=== PATIENT | female | born 1955 | race Caucasian/White ===

== ENCOUNTER 2019-02-14 13:26 | Outpatient (CLI) | payer OTHER ==
--- NOTE | 2019-02-14 13:48 | RAD ---
F3 views right shoulder. HISTORY: Upper back and chest pain. AP internally, externally scapular Y views right shoulder obtained. 3 views right shoulder demonstrates no evidence of right shoulder fractures, subluxations or bony les ions. IMPRESSION: Normal 3 views right shoulder.
--- NOTE | 2019-02-14 15:05 | RAD ---
CERVICAL SPINE 4 VIEWS: Date: 02/14/19 HISTORY: Upper back pain. Neck pain. FINDINGS: Cervical vertebra maintain height and alignment. There are mild to moderate degenerative changes. Mil d loss of disc space at C3-4 and at C5-6. Anterior osteophytes at C3-4 and C5-6 with posterior spondy losis at both of these levels. Mild facet hypertrophy in the mid cervical spine is also seen. Posteri or alignment is maintained. IMPRESSION: There are mild to moderate degenerative changes at C3-4 and at C5-6 as described. POS: [facility]
== END 2019-02-14 13:27 | disposition home or self-care (01) ==
LOC: NAV RAD 13:26
PROVIDERS: ATTEND Internal Medicine
DX: M54.6 Pain in thoracic spine (principal); M47.812 Spondylosis without myelopathy or radiculopathy, cervical region
CPT/HCPCS: 72040

== ENCOUNTER 2019-06-10 15:28 | Emergency (ER) | payer OTHER ==
[2019-06-10 16:13] LABS: Hemoglobin 7.7 g/dL (12.0-16.0); Mean Corpuscular HGB CONC 31.5 g/dL (32.0-36.0); Mean Corpuscular Hemoglobin 31.2 pg (27.0-31.0); Mean Platelet Volume 5.3 fL (7.4-10.4); Platelet Count 309 thou/uL (130-400); RBC Distribution Width 19.9 % (11.5-14.5); Red Blood Cell (RBC) Count 2.48 mill/uL (4.20-5.40); White Blood Cell (WBC) Count 32.7 thou/uL (4.8-10.8)
[2019-06-10] MEDS ORDERED: Ondansetron PF 4 MG/2 ML Vial ONE (16:17)
[2019-06-10] MEDS ORDERED: Sodium Chloride 0.9% 1,000 ML ONE (16:17)
--- NOTE | 2019-06-10 16:18 | CT ---
CT head noncontrast HISTORY: Altered mental status. FINDINGS: There is no evidence of acute intracranial hemorrhage or infarct. The ventricles appear nor mal in size, shape and position. There is no mass effect or shift of midline structures. Mild chronic ischemic small vessel changes within the periventricular white matter of each cerebral hemisp here. Visualized paranasal sinuses remain well-aerated. IMPRESSION: No acute intracranial abnormalities are demonstrated.
[2019-06-10] MEDS ORDERED: cefTRIAXone\\ROCEPHIN 2 GM VIAL ONE (16:33)
[2019-06-10 16:35] LABS: ALT (SGPT) 22 U/L (8-55); AST (SGOT) 29 U/L (5-34); Albumin 4.1 g/dL (3.4-4.8); Alkaline Phosphatase 521 U/L (40-150); Anion Gap 14 mmol/L (10-20); BUN (Urea Nitrogen) 15 mg/dL (9.8-20.1); Bilirubin, Total 0.6 mg/dL (0.2-1.2); Calc. Creatinine Clearance 0 mL/min (70-130); Calcium 8.7 mg/dL (7.8-10.44); Carbon Dioxide 22 mmol/L (23-31); Chloride 99 mmol/L (98-107); Estimated GFR-MDRD Greater than 90; Globulin 2.4 g/dL (2.4-3.5); Glucose 143 mg/dL (80-115); Lipase 18 U/L (8-78); Protein, Total 6.5 g/dL (6.0-8.3); Sodium 131 mmol/L (136-145)
[2019-06-10 16:40] LABS: Anisocytosis MODERATE=16-30 cells (100X) (0-5/hpf); Band 12 % (5-11); Lymphocytes 1 % (21-51); MDiff Complete? YES; Macrocytosis SLIGHT = 6-15 cells (100X) (0-5/hpf); Monocytes 1 % (0-10); Neutrophil 86 % (42-75); Platelet Morphology Comment Appears Adequate
[2019-06-10] MEDS ORDERED: Cefepime 2 GM VIAL ONE (17:06)
[2019-06-10 17:13] LABS: Bilirubin Negative (Negative); Blood, Urine Negative (Negative); Clarity Clear (Clear); Glucose, Urine (Dipstick) Negative (Negative); Leukocyte Trace (Negative); Nitrite Negative (Negative); Protein, Urine (Dipstick) 30 mg/dL (Neg-Trace); Urobilinogen 0.2 mg/dL (Less than 2)
[2019-06-10 17:45] LABS: Bacteria/HPF 1+ HPF (None Seen); RBC/HPF 0-3 HPF (0-3); WBC/HPF 0-3 HPF (0-3)
== END 2019-06-10 17:37 | disposition short-term general hospital (02) ==
LOC: NAV ERS 15:28
DX: D72.829 Elevated white blood cell count, unspecified (principal); R11.2 Nausea with vomiting, unspecified; E78.5 Hyperlipidemia, unspecified; I10 Essential (primary) hypertension; Z87.891 Personal history of nicotine dependence
CPT/HCPCS: 36415; 70450; 80053; 81003; 81015; 83605; 83690; 85025; 87040; 87086; 96361; 96365; 96375; J0692; J0696; J2405; J7050

== ENCOUNTER 2019-07-27 10:03 | Inpatient (IN) | payer OTHER ==
[2019-07-27] MEDS ORDERED: Fluconazole 100 MG TAB PO SCH (12:15)
[2019-07-27 12:18] LABS: ALT (SGPT) 160 U/L (8-55); AST (SGOT) 57 U/L (5-34); Albumin 3.2 g/dL (3.4-4.8); Alkaline Phosphatase 150 U/L (40-150); Anion Gap 13 mmol/L (10-20); BUN (Urea Nitrogen) 19 mg/dL (9.8-20.1); Bilirubin, Total 0.6 mg/dL (0.2-1.2); Calc. Creatinine Clearance 71 mL/min (70-130); Calcium 8.4 mg/dL (7.8-10.44); Carbon Dioxide 30 mmol/L (23-31); Chloride 90 mmol/L (98-107); Estimated GFR-MDRD Greater than 90; Globulin 1.9 g/dL (2.4-3.5); Glucose 104 mg/dL (80-115); Potassium 3.4 mmol/L (3.5-5.1); Protein, Total 5.1 g/dL (6.0-8.3); Sodium 130 mmol/L (136-145)
[2019-07-27 12:43] LABS: Hemoglobin 10.2 g/dL (12.0-16.0); Mean Corpuscular HGB CONC 32.7 g/dL (32.0-36.0); Mean Corpuscular Hemoglobin 30.6 pg (27.0-31.0); Mean Corpuscular Volume 93.4 fL (78.0-98.0); Mean Platelet Volume 5.4 fL (7.4-10.4); Platelet Count 247 thou/uL (130-400); RBC Distribution Width 17.2 % (11.5-14.5); Red Blood Cell (RBC) Count 3.34 mill/uL (4.20-5.40); White Blood Cell (WBC) Count 17.7 thou/uL (4.8-10.8)
[2019-07-27] MEDS: HYDROcodone/Acetaminophen 10/325 mg Tablet PO PRN ×2 (12:43→20:31)
[2019-07-27 12:44] LABS: Anisocytosis SLIGHT = 6-15 cells (100X) (0-5/hpf); Lymphocytes 8 % (21-51); MDiff Complete? YES; Monocytes 7 % (0-10); Neutrophil 85 % (42-75); Platelet Morphology Comment Appears Adequate
[2019-07-27] MEDS ORDERED: predniSONE 20 MG TAB PO SCH ×2 (17:00→17:30)
[2019-07-27] MEDS: Apixaban 5 MG TAB PO SCH (20:31)
[2019-07-27] MEDS: Mirtazapine 15 MG Soltab PO SCH (20:33)
[2019-07-27] MEDS: Flecainide 50 MG TAB PO SCH (20:33)
[2019-07-28] MEDS: HYDROcodone/Acetaminophen 10/325 mg Tablet PO PRN ×3 (04:32→20:36)
[2019-07-28] MEDS ORDERED: Sodium Chloride 0.9% 20 ML ONE (06:27)
[2019-07-28] MEDS ORDERED: Sodium Chloride 0.9% 1,000 ML IV SCH ×2 (07:00→19:00)
[2019-07-28] MEDS: Saccharomyces boulardii 250 MG CAP PO SCH (08:28)
[2019-07-28] MEDS: Flecainide 50 MG TAB PO SCH ×2 (08:29→20:36)
[2019-07-28] MEDS: predniSONE 20 MG TAB PO SCH ×2 (08:29→16:39)
[2019-07-28] MEDS: Fluconazole 100 MG TAB PO SCH (08:29)
[2019-07-28] MEDS: Amlodipine 5 MG TAB PO SCH (08:29)
[2019-07-28] MEDS: Apixaban 5 MG TAB PO SCH ×2 (08:29→20:36)
--- NOTE | 2019-07-28 13:14 | HP ---
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 She has undergone chemotherapy and immunotherapy and is in remission at this time with no evidence of active metastasis or primary lung disease. 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 She apparently, however, has continued to have recurrent diarrhea after discharge up to 3-5 times daily with association with poor appetite has caused her to have significant weakness and dehydration. [facility] and has had need for IV fluids in the oncology unit several times already. She is therefore admitted to the swing unit for IV fluids and for therapy as she is significantly deconditioned from her primary illness as well as a subsequent complications of colitis and diarrhea. She is eating fairly well with only mild nausea with no vomiting. She has also developed a complication of atrial fibrillation and flutter with rapid ventricular response which is what precipitated her admission to [facility] on June 29. This was treated with ablation for typical atrial flutter, and she is to stay on apixaban anticoagulation and rhythm control with flecainide 50 mg every 12 hours. This has maintained her in sinus rhythm, and according to the original note, she may be ready to have her anticoagulation discontinued, but this will not be done until clarified with her inside phone sales. PAST MEDICAL HISTORY: As mentioned above. It is positive for cancer of the lung, hypertension, hyperlipidemia, the recent diagnosis of Clostridium difficile colitis which has resolved, and the autoimmune colitis in addition to the new onset of atrial fibrillation and flutter. PAST SURGICAL HISTORY: Positive only for multiple back surgeries and for a MediPort placement for chemotherapy. SOCIAL HISTORY: She is a full code. She lives with her family. She is a nondrinker. She is a former smoker until last year. ALLERGIES: SHE IS ALLERGIC TO ERYTHROMYCIN. REVIEW OF SYSTEMS: HEENT: She denies change in vision or hearing, hoarseness, or dysphagia. PULMONARY: She denies cough, sputum production, pneumonia, asthma, or tuberculosis. CARDIOVASCULAR: She has the above-mentioned history of atrial flutter which apparently is asymptomatic as far as palpitations, chest pain, and shortness of breath, only associated with weakness and dyspnea on exertion. GASTROINTESTINAL: She has poor appetite, but no nausea, has had the recurrent diarrhea up to 5 to 10 loose stools daily, now down to 1 to 3 on steroid therapy. She denies any abdominal pain. GENITOURINARY: She denies any dysuria, hematuria, or nocturia. MUSCULOSKELETAL: She has diffuse generalized weakness. NEUROLOGIC: She denies localized numbness or tingling in arms or extremities. PHYSICAL EXAMINATION: GENERAL: The patient is a middle-aged white female, in no acute distress, oriented x3, and cooperative. VITAL SIGNS: Temperature is 98.6, pulse 102, respirations 20, O2 sats 94% on room air, blood pressure is 124/72. HEENT: Pupils are equal, round, and reactive to light and accommodation. Sclerae are anicteric. Conjunctivae are pale. Oral mucous membranes well hydrated. She has lost most of her hair from chemotherapy. NECK: Supple. There are no nodes or masses. JVP is not elevated. LUNGS: Clear. CARDIAC: Regular rhythm with S4. No gallops or murmurs. ABDOMEN: Soft with minimal tenderness in left lower quadrant. No masses or organomegaly. SKIN/EXTREMITIES: No edema, clubbing, or cyanosis. NEUROLOGIC: Intact. LABORATORY DATA: White count of 17,700, hematocrit 31, hemoglobin 10. Sodium is 130, potassium 3.4, chloride 90, bicarb 30, BUN 19, creatinine 0.64, calcium 8.4, AST 57, ALT 160, alkaline phosphatase 150, albumin 3.2. ASSESSMENT: 1. The patient is an unfortunate 63-year-old white female with a history of metastatic small-cell cancer to bone, who has undergone chemotherapy and immunotherapy and is in remission from her cancer, but has developed complications of initially C. difficile colitis and now autoimmune colitis with subsequent severe diarrhea, weakness, and dehydration requiring multiple rehydrations with IV fluids at the oncology unit. She has become significantly weak and unable to maintain ADLs and therefore was admitted to the [facility] for PT/OT. She also will be given IV bolus of saline periodically to maintain her hydration. 2. Atrial fibrillation and flutter, new onset, which has been treated with ablation and now is maintained in sinus rhythm on flecainide and is still on anticoagulation 1 month after ablation, even though initial recommendations were to possibly discontinue anticoagulation at that time. 3. Bone metastasis with no pain, being monitored closely. PLAN: 1. PT/OT consult. 2. Saline bolus 1000 mL in the a.m. and periodically as needed for hydration. 3. Continue to monitor oral intake and diarrhea. 4. Continue prednisone 40 mg twice daily for autoimmune colitis. Job ID: [id number]
[2019-07-28] MEDS: Mirtazapine 15 MG Soltab PO SCH (20:36)
[2019-07-29] MEDS: predniSONE 20 MG TAB PO SCH ×2 (08:29→16:48)
[2019-07-29] MEDS: Saccharomyces boulardii 250 MG CAP PO SCH (08:29)
[2019-07-29] MEDS: Fluconazole 100 MG TAB PO SCH (08:30)
[2019-07-29] MEDS: Apixaban 5 MG TAB PO SCH ×2 (08:30→20:54)
[2019-07-29] MEDS: Amlodipine 5 MG TAB PO SCH (08:30)
[2019-07-29] MEDS: Flecainide 50 MG TAB PO SCH ×2 (08:31→20:54)
[2019-07-29] MEDS: HYDROcodone/Acetaminophen 10/325 mg Tablet PO PRN ×3 (08:39→21:00)
[2019-07-29] MEDS: Baclofen 10 MG TAB PO PRN ×2 (09:34→18:33)
[2019-07-29] MEDS: Mirtazapine 15 MG Soltab PO SCH (20:54)
--- NOTE | 2019-07-29 21:32 | PRG ---
DATE OF SERVICE: 07/28/[address] Roderick Monk. SUBJECTIVE: The patient feels much better. Increased strength. Increased appetite. Does state, however, that she has had increased bowel movements with the IV fluids and does not wish IV fluids at this time, is ready to do more therapy, however, next week. OBJECTIVE: VITAL SIGNS: Shows her temperature is 96.9, pulse 99, respirations 20, O2 sats 96% on room air, blood pressure 125/74. LUNGS: Clear. CARDIAC EXAMINATION: Shows regular rhythm. ABDOMEN: Soft and nontender. ASSESSMENT: 1. Metastatic small-cell cancer of the lungs, of the bone, status post chemotherapy with complications of C. difficile colitis, now immune colitis, on steroid treatment with improving, but persistent diarrhea and weakness. 2. Atrial fibrillation and flutter. Maintain in sinus rhythm after ablation, but still on anticoagulation after one month and may need to consider discontinuation. 3. Bony metastasis with no pain, being monitored closely. PLAN: 1. Continue PT/OT. 2. Withhold saline and monitor as needed. Continue to monitor oral intake and diarrhea. Continue prednisone 40 mg twice daily for autoimmune colitis. Job ID: [id number]
--- NOTE | 2019-07-29 21:36 | PRG ---
DATE OF SERVICE: 07/29/2019 SUBJECTIVE: The patient feels well. Does not wish any further fluids. States she is ready for therapy. Has been eating well. Had some mild nausea and diarrhea today. OBJECTIVE: VITAL SIGNS: Show blood pressure is 134/72, temperature is 98, pulse 102, respirations 20, and O2 sats 97% on room air. LUNGS: Clear. CARDIAC: Showed regular rhythm. ABDOMEN: Soft with some minimal tenderness. ASSESSMENT AND PLAN: 1. 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 2. Deconditioning, ready for more PT/OT. 3. Dehydration, appears to be resolved at this time. We will monitor closely. 4. History of atrial fibrillation/flutter, resolved, status post ablation and is being maintained on rate control and anticoagulation but may need to be able to discontinue anticoagulation soon. Job ID: [id number]
[2019-07-30] MEDS: HYDROcodone/Acetaminophen 10/325 mg Tablet PO PRN ×3 (06:17→20:59)
[2019-07-30] MEDS: predniSONE 20 MG TAB PO SCH ×2 (08:45→17:17)
[2019-07-30] MEDS: Saccharomyces boulardii 250 MG CAP PO SCH (08:45)
[2019-07-30] MEDS: Amlodipine 5 MG TAB PO SCH (08:46)
[2019-07-30] MEDS: Apixaban 5 MG TAB PO SCH ×2 (08:46→21:00)
[2019-07-30] MEDS: Flecainide 50 MG TAB PO SCH ×2 (08:46→21:00)
[2019-07-30] MEDS: Baclofen 10 MG TAB PO PRN ×2 (08:46→17:35)
[2019-07-30] MEDS: Fluconazole 100 MG TAB PO SCH (08:46)
--- NOTE | 2019-07-30 13:58 | PRG ---
DATE OF SERVICE: 07/30/2019 SUBJECTIVE: Ms. Guzman is doing and feeling better per patient and Nursing. She states that she now has an appetite and is starting to eat. She states that she cannot tolerate the Ensure, and I advised her that I will have a dietary consult to see what else we can substitute. She is participating with therapy. Her diarrhea is much improved. She is noticing some crampy abdominal pain, and I advised her that most likely it is from her eating more and as long as she is not having any diarrhea. No blood in her stool. No fever or chills, then it means that her colitis is staying under control. She apparently was advised to cut down her prednisone to [address] Hood, and that is the dose we will continue her on as it seems to be helping her as well. No family at bedside. She does have an appointment with Dr. Parra, the leasing professional, tomorrow and nursing is aware that the patient will be taken by her son for the appointment and she will come back. OBJECTIVE: VITAL SIGNS: She is afebrile, heart rate 98, respirations 16, oxygen saturation 97% on room air, blood pressure 139/81. CARDIOVASCULAR: S1 and S2 plus. RESPIRATORY: Normal vesicular breath sounds. ABDOMEN: Soft, nontender. Bowel sounds heard in all quadrants. EXTREMITIES: Without cyanosis or clubbing. CENTRAL NERVOUS SYSTEM: Awake and responsive. Generalized weakness. IMPRESSION: 1. Metastatic lung cancer. 2. Autoimmune colitis. 3. Hypertension. 4. Dyslipidemia. 5. Resolved Clostridium difficile colitis. 6. Atrial fibrillation and flutter. 7. Significant deconditioning. PLAN: 1. Continue current medications including steroids. 2. Nutritional support and dietary to consult. 3. Hydration with IV fluids p.r.n. 4. Encourage p.o. fluid intake. She is doing well, currently on water and Gatorade. 5. PT and OT to eval and treat. 6. Recheck laboratory values in the morning. 7. DVT prophylaxis. Currently, she is on Eliquis. 8. Stress ulcer prophylaxis. We will start her on Pepcid. 9. Decubitus precautions. 10. Discussed with the patient and nursing in detail. All questions answered. Job ID: [id number]
[2019-07-30] MEDS: Famotidine 20 MG TAB PO SCH (20:59)
[2019-07-30] MEDS: Mirtazapine 15 MG Soltab PO SCH (21:00)
[2019-07-31] MEDS: HYDROcodone/Acetaminophen 10/325 mg Tablet PO PRN ×4 (05:37→22:19)
[2019-07-31 06:03] LABS: #Lymphocytes 0.8 thou/uL (1.20-3.40); #Monocytes 0.5 thou/uL (0.11-0.59); #Neutrophils 8.7 thou/uL (1.40-6.50); %Basophils 0.4 % (0.0-1.0); %Lymphocytes 7.4 % (21.0-51.0); %Monocytes 5.2 % (0.0-10.0); %Neutrophils 86.9 % (42.0-75.0); Hemoglobin 10.3 g/dL (12.0-16.0); Mean Corpuscular HGB CONC 32.2 g/dL (32.0-36.0); Mean Corpuscular Hemoglobin 30.4 pg (27.0-31.0); Mean Corpuscular Volume 94.1 fL (78.0-98.0); Mean Platelet Volume 5.2 fL (7.4-10.4); Platelet Count 256 thou/uL (130-400); RBC Distribution Width 17.7 % (11.5-14.5); Red Blood Cell (RBC) Count 3.38 mill/uL (4.20-5.40)
[2019-07-31] MEDS: predniSONE 20 MG TAB PO SCH ×2 (07:47→17:31)
[2019-07-31] MEDS: Baclofen 10 MG TAB PO PRN ×2 (07:48→18:16)
[2019-07-31 08:25] LABS: Anion Gap 16 mmol/L (10-20); BUN (Urea Nitrogen) 15 mg/dL (9.8-20.1); Calc. Creatinine Clearance 90 mL/min (70-130); Calcium 8.4 mg/dL (7.8-10.44); Carbon Dioxide 25 mmol/L (23-31); Chloride 96 mmol/L (98-107); Estimated GFR-MDRD Greater than 90; Glucose 102 mg/dL (80-115); Magnesium 2.1 mg/dL (1.6-2.6); Potassium 3.3 mmol/L (3.5-5.1); Sodium 134 mmol/L (136-145)
[2019-07-31] MEDS: Amlodipine 5 MG TAB PO SCH (08:46)
[2019-07-31] MEDS: Flecainide 50 MG TAB PO SCH ×2 (08:46→20:41)
[2019-07-31] MEDS: Apixaban 5 MG TAB PO SCH ×2 (08:46→20:41)
[2019-07-31] MEDS: Fluconazole 100 MG TAB PO SCH (08:46)
[2019-07-31] MEDS: Saccharomyces boulardii 250 MG CAP PO SCH (08:46)
[2019-07-31] MEDS ORDERED: Potassium Chloride 20 MEQ TAB PO SCH (13:15)
--- NOTE | 2019-07-31 13:35 | PRG ---
DATE OF SERVICE: 07/31/2019 SUBJECTIVE: Ms. Guzman is seen on her way to see her video tape transferrer. She apparently had four very small loose bowel movements this morning. Denies any fever or chills. She did meet with dietitian. OBJECTIVE: VITAL SIGNS: She is afebrile. Heart rate is 104, respirations 18, oxygen saturation 97% on room air, and blood pressure 124/75. CARDIOVASCULAR: S1 and S2 plus. RESPIRATORY: Normal vesicular breath sounds. ABDOMEN: Soft, nontender. Bowel sounds heard in all quadrants. EXTREMITIES: Without cyanosis or clubbing. CENTRAL NERVOUS SYSTEM: Awake and responsive. Generalized weakness. LABORATORY DATA: Laboratory values show sodium is much improved at 134, potassium still low at 3.3, BUN and creatinine are 15 and 0.5. White count is 10, H and H are 10.3 and 31.8 with a platelet count of 256. IMPRESSION: 1. Autoimmune colitis. 2. Resolved leukocytosis. 3. Anemia likely due to chronic disease. 4. Hyponatremia, improving. 5. Hypokalemia. 6. Protein calorie malnutrition, mild. 7. Resolved clostridium difficile colitis. 8. Metastatic lung cancer. PLAN: 1. Continue current medications including steroids. 2. Nutritional support. 3. Continue to encourage p.o. fluid intake. 4. Monitor diarrhea. 5. Replace potassium. 6. Her magnesium level is also normal, so continue to monitor blood counts and electrolytes. 7. Physical therapy as tolerated. 8. All questions answered. 9. Discussed with nursing. Job ID: [id number]
[2019-07-31] MEDS: Mirtazapine 15 MG Soltab PO SCH (20:41)
[2019-07-31] MEDS: Famotidine 20 MG TAB PO SCH (20:41)
[2019-08-01] MEDS: HYDROcodone/Acetaminophen 10/325 mg Tablet PO PRN ×2 (05:34→17:29)
[2019-08-01] MEDS: Amlodipine 5 MG TAB PO SCH (08:14)
[2019-08-01] MEDS: Baclofen 10 MG TAB PO PRN ×2 (08:14→17:30)
[2019-08-01] MEDS: Saccharomyces boulardii 250 MG CAP PO SCH (08:14)
[2019-08-01] MEDS: predniSONE 20 MG TAB PO SCH ×2 (08:14→17:29)
[2019-08-01] MEDS: Fluconazole 100 MG TAB PO SCH (08:14)
[2019-08-01] MEDS: Flecainide 50 MG TAB PO SCH (08:16)
[2019-08-01] MEDS: Apixaban 5 MG TAB PO SCH ×2 (08:16→21:41)
--- NOTE | 2019-08-01 13:01 | PRG ---
DATE OF SERVICE: 08/01/2019 SUBJECTIVE: Ms. Guzman is doing well, but her diarrhea is back. She has had about 3 to 4 episodes. No fever or chills. Her appetite is good and she is eating well. No lightheadedness or dizziness. She did participate with therapy. She saw Dr. Parra yesterday and apparently, she is supposed to have a monitor placed next week and then she is supposed to stop her medications. I do not see any orders. We will check with nursing. It is flecainide and Eliquis. OBJECTIVE: VITAL SIGNS: She is afebrile. Heart rate 102, respirations 18, oxygen saturation 97% on room air, and blood pressure 126/81. CARDIOVASCULAR: S1 and S2 plus. RESPIRATORY: Normal vesicular breath sounds. ABDOMEN: Soft and nontender. Bowel sounds heard in all quadrants. EXTREMITIES: Without cyanosis or clubbing. CENTRAL NERVOUS SYSTEM: Awake and responsive. Generalized weakness. IMPRESSION: 1. Autoimmune colitis. 2. Metastatic lung cancer. 3. Protein calorie malnutrition, mild. 4. Improving anorexia. 5. Hypokalemia. 6. Improving hyponatremia. 7. Atrial fibrillation, paroxysmal, now in sinus rhythm. PLAN: 1. Continue current medications. 2. Nutritional support. 3. DVT prophylaxis, she is on Eliquis. 4. Decubitus precautions. 5. Stress ulcer prophylaxis. 6. Monitor electrolytes and blood count. 7. Physical therapy. 8. Close monitoring of diarrhea in her GI system. 9. Continue steroids. 10. We will check with nursing to see if Dr. Parra sent any instructions regarding discontinuing any of her medications. Job ID: [id number]
[2019-08-01] MEDS: Mirtazapine 15 MG Soltab PO SCH (21:40)
[2019-08-01] MEDS: Famotidine 20 MG TAB PO SCH (21:40)
[2019-08-01] MEDS: Acetaminophen 500 MG TAB PO PRN (22:45)
[2019-08-02] MEDS: HYDROcodone/Acetaminophen 10/325 mg Tablet PO PRN ×4 (02:51→22:24)
[2019-08-02] MEDS: Hyoscyamine Sulfate SL 0.125 mg Tablet SL PRN (05:28)
[2019-08-02] MEDS ORDERED: HYDROcodone/Acetaminophen 10/325 mg Tablet PO SCH (05:30)
[2019-08-02] MEDS: Baclofen 10 MG TAB PO PRN ×2 (08:25→18:25)
[2019-08-02] MEDS: predniSONE 20 MG TAB PO SCH ×2 (08:25→16:43)
[2019-08-02] MEDS: Amlodipine 5 MG TAB PO SCH (08:25)
[2019-08-02] MEDS: Saccharomyces boulardii 250 MG CAP PO SCH (08:25)
[2019-08-02] MEDS: Apixaban 5 MG TAB PO SCH ×2 (08:35→21:27)
--- NOTE | 2019-08-02 13:06 | PRG ---
DATE OF SERVICE: 08/02/2019 SUBJECTIVE: Ms. Guzman did have increased diarrhea yesterday, which has slowed down. She also had cramping, but it responded very well to Levsin sublingual. She also had a headache, which responded to Tylenol. Her appetite remains good. I reviewed her notes instructions from Dr. Parra, the asphalt worker, and she is off her flecainide, and her Eliquis will be stopped next week when the Holter monitor is placed. OBJECTIVE: VITAL SIGNS: She is afebrile. Heart rate 97, respirations 18, oxygen saturation 96% on room air, and blood pressure 136/81. CARDIOVASCULAR SYSTEM: S1 and S2 plus. RESPIRATORY SYSTEM: Normal vesicular breath sounds. ABDOMEN: Soft and nontender. Bowel sounds heard in all quadrants. EXTREMITIES: Without cyanosis or clubbing. Peripheral pulses are palpable. CENTRAL NERVOUS SYSTEM: Awake and responsive. Generalized weakness. IMPRESSION: 1. Metastatic lung cancer. 2. Autoimmune colitis. 3. Hypertension. 4. Dyslipidemia. 5. Mild protein-calorie malnutrition. 6. Atrial fibrillation, paroxysmal. PLAN: 1. Continue current medications including steroids. 2. Routine laboratory values. 3. Nutritional support. 4. DVT prophylaxis. Currently, she is on Eliquis, but once that is discontinued, we will start her on PlexiPulses. 5. Decubitus precautions. 6. Stress ulcer prophylaxis. 7. Check labs in the morning. 8. Discussed with the patient in detail. All questions answered. 9. Therapy. Job ID: [id number]
[2019-08-02] MEDS: Acetaminophen 500 MG TAB PO PRN (18:25)
[2019-08-02] MEDS: Mirtazapine 15 MG Soltab PO SCH (21:27)
[2019-08-02] MEDS: Famotidine 20 MG TAB PO SCH (21:27)
[2019-08-03 05:28] LABS: #Lymphocytes 0.9 thou/uL (1.20-3.40); #Monocytes 0.4 thou/uL (0.11-0.59); #Neutrophils 4.6 thou/uL (1.40-6.50); %Basophils 0.8 % (0.0-1.0); %Eosinophils 0.1 % (0.0-10.0); %Lymphocytes 15.1 % (21.0-51.0); %Monocytes 6.5 % (0.0-10.0); %Neutrophils 77.5 % (42.0-75.0); Hemoglobin 10.9 g/dL (12.0-16.0); Mean Corpuscular HGB CONC 32.7 g/dL (32.0-36.0); Mean Corpuscular Hemoglobin 30.9 pg (27.0-31.0); Mean Corpuscular Volume 94.5 fL (78.0-98.0); Mean Platelet Volume 5.5 fL (7.4-10.4); Platelet Count 203 thou/uL (130-400); RBC Distribution Width 17.8 % (11.5-14.5); Red Blood Cell (RBC) Count 3.54 mill/uL (4.20-5.40); White Blood Cell (WBC) Count 5.9 thou/uL (4.8-10.8)
[2019-08-03 05:37] LABS: ALT (SGPT) 154 U/L (8-55); AST (SGOT) 38 U/L (5-34); Albumin 3.4 g/dL (3.4-4.8); Alkaline Phosphatase 172 U/L (40-150); Anion Gap 14 mmol/L (10-20); BUN (Urea Nitrogen) 19 mg/dL (9.8-20.1); Bilirubin, Total 0.9 mg/dL (0.2-1.2); Calc. Creatinine Clearance 84 mL/min (70-130); Calcium 8.9 mg/dL (7.8-10.44); Carbon Dioxide 27 mmol/L (23-31); Chloride 96 mmol/L (98-107); Estimated GFR-MDRD Greater than 90; Globulin 2.3 g/dL (2.4-3.5); Glucose 104 mg/dL (80-115); Potassium 3.8 mmol/L (3.5-5.1); Protein, Total 5.7 g/dL (6.0-8.3); Sodium 133 mmol/L (136-145)
[2019-08-03] MEDS: predniSONE 20 MG TAB PO SCH ×2 (08:11→23:03)
[2019-08-03] MEDS: Amlodipine 5 MG TAB PO SCH (08:12)
[2019-08-03] MEDS: Apixaban 5 MG TAB PO SCH ×2 (08:13→21:42)
[2019-08-03] MEDS: Saccharomyces boulardii 250 MG CAP PO SCH (08:13)
[2019-08-03] MEDS: HYDROcodone/Acetaminophen 10/325 mg Tablet PO PRN ×3 (08:14→21:42)
[2019-08-03] MEDS: Hyoscyamine Sulfate SL 0.125 mg Tablet SL PRN ×3 (08:15→21:42)
[2019-08-03] MEDS: Acetaminophen 500 MG TAB PO PRN (09:37)
[2019-08-03] MEDS: Famotidine 20 MG TAB PO SCH (21:42)
[2019-08-03] MEDS: Mirtazapine 15 MG Soltab PO SCH (21:42)
[2019-08-04] MEDS: HYDROcodone/Acetaminophen 10/325 mg Tablet PO PRN ×3 (06:51→21:19)
[2019-08-04] MEDS: Hyoscyamine Sulfate SL 0.125 mg Tablet SL PRN ×2 (06:54→12:33)
[2019-08-04] MEDS: predniSONE 20 MG TAB PO SCH ×2 (07:51→17:36)
[2019-08-04] MEDS: Baclofen 10 MG TAB PO PRN ×2 (07:51→17:36)
[2019-08-04] MEDS: Amlodipine 5 MG TAB PO SCH (08:55)
[2019-08-04] MEDS: Saccharomyces boulardii 250 MG CAP PO SCH (08:55)
[2019-08-04] MEDS: Apixaban 5 MG TAB PO SCH ×2 (08:55→21:21)
--- NOTE | 2019-08-04 15:05 | PRG ---
DATE OF SERVICE: 08/04/2019 SUBJECTIVE: Ms. Guzman is doing well. She apparently had about five episodes of diarrhea. She feels like it is related to her Ensure. She did not have any until the nurses made her drink one this morning and they wanted her to take 3 a day , so when she asked or when she drank her second one, she started having diarrhea. Since her albumin level is almost back to normal and she is eating well and her appetite is good, plan is to discontinue her Ensure and monitor her diarrhea to see if the diarrhea is related to the autoimmune colitis or whether it is related to dairy products. OBJECTIVE: VITAL SIGNS: She is afebrile, heart rate 98, respirations 23, oxygen saturation 98%, and blood pressure 140/84. CARDIOVASCULAR: S1 and S2 plus. RESPIRATORY: Normal vesicular breath sounds. EXTREMITIES: Without cyanosis or clubbing. CENTRAL NERVOUS SYSTEM: Improving deconditioning. IMPRESSION: 1. Autoimmune colitis. 2. Metastatic lung cancer. 3. Anemia of chronic disease. 4. Resolved leukocytosis. 5. Resolved Clostridium difficile colitis. 6. Paroxysmal atrial fibrillation. 7. Hypertension. 8. Dyslipidemia. PLAN: 1. Continue current medications. 2. Discontinue ensure. 3. Nutritional support but no dairy products. 4. Physical therapy. 5. Continue steroid. 6. Routine laboratory values. Still on Eliquis. 7. Discussed with the patient and nursing. All questions answered. Job ID: [id number]
[2019-08-04] MEDS: Mirtazapine 15 MG Soltab PO SCH (21:21)
[2019-08-04] MEDS: Famotidine 20 MG TAB PO SCH (21:21)
[2019-08-05] MEDS: HYDROcodone/Acetaminophen 10/325 mg Tablet PO PRN ×2 (05:21→12:41)
[2019-08-05] MEDS: Hyoscyamine Sulfate SL 0.125 mg Tablet SL PRN ×2 (05:28→12:42)
[2019-08-05] MEDS: Promethazine 25 MG TAB PO PRN (05:30)
[2019-08-05] MEDS: predniSONE 20 MG TAB PO SCH ×2 (07:45→16:42)
[2019-08-05] MEDS: Acetaminophen 500 MG TAB PO PRN ×2 (07:45→21:43)
[2019-08-05] MEDS: Baclofen 10 MG TAB PO PRN ×2 (07:45→18:40)
[2019-08-05] MEDS: Amlodipine 5 MG TAB PO SCH (08:33)
[2019-08-05] MEDS: Apixaban 5 MG TAB PO SCH ×2 (08:34→21:44)
[2019-08-05] MEDS: Saccharomyces boulardii 250 MG CAP PO SCH (08:35)
--- NOTE | 2019-08-05 15:16 | PRG ---
DATE OF SERVICE: 08/05/2019 SUBJECTIVE: Ms. Guzman is doing well. Denies any complaints. She apparently had 3 bowel movements today, small with some formed stools in each. She is off her Ensure and milk products. No concerns or questions. Appetite remains good. OBJECTIVE: VITAL SIGNS: She is afebrile, heart rate 111, respirations 16, blood pressure 132/80, and oxygen saturation 98% on room air. CARDIOVASCULAR SYSTEM: S1 and S2 plus. RESPIRATORY SYSTEM: Normal vesicular breath sounds. ABDOMEN: Soft and nontender. Bowel sounds heard in all quadrants. EXTREMITIES: Without cyanosis or clubbing. IMPRESSION: 1. Improving autoimmune colitis. 2. Improving protein-calorie malnutrition. 3. Metastatic lung cancer. 4. Hypertension. 5. Dyslipidemia. 6. Paroxysmal atrial fibrillation. PLAN: 1. Continue current medications. 2. Nutritional support. 3. Schedule appointment for followup with GI if the diarrhea does not continue to improve. 4. Routine laboratory values. 5. Physical therapy. 6. DVT prophylaxis - she is still on Eliquis. 7. Decubitus precautions. 8. Routine laboratory values. Job ID: [id number]
[2019-08-05] MEDS: Mirtazapine 15 MG Soltab PO SCH (21:44)
[2019-08-05] MEDS: Famotidine 20 MG TAB PO SCH (21:44)
[2019-08-06] MEDS: HYDROcodone/Acetaminophen 10/325 mg Tablet PO PRN ×3 (00:37→22:30)
[2019-08-06] MEDS: Hyoscyamine Sulfate SL 0.125 mg Tablet SL PRN ×3 (00:38→22:33)
[2019-08-06] MEDS: Promethazine 25 MG TAB PO PRN (00:53)
[2019-08-06] MEDS: Baclofen 10 MG TAB PO PRN (02:13)
[2019-08-06 05:40] LABS: #Basophils 0.1 thou/uL (0.0-0.2); #Lymphocytes 0.8 thou/uL (1.20-3.40); #Monocytes 0.4 thou/uL (0.11-0.59); #Neutrophils 2.9 thou/uL (1.40-6.50); %Basophils 1.4 % (0.0-1.0); %Eosinophils 0.1 % (0.0-10.0); %Lymphocytes 19.2 % (21.0-51.0); %Monocytes 8.8 % (0.0-10.0); %Neutrophils 70.5 % (42.0-75.0); Hemoglobin 11.4 g/dL (12.0-16.0); Mean Corpuscular HGB CONC 32.2 g/dL (32.0-36.0); Mean Corpuscular Hemoglobin 30.6 pg (27.0-31.0); Mean Corpuscular Volume 95.3 fL (78.0-98.0); Mean Platelet Volume 5.7 fL (7.4-10.4); Platelet Count 188 thou/uL (130-400); RBC Distribution Width 17.1 % (11.5-14.5); Red Blood Cell (RBC) Count 3.73 mill/uL (4.20-5.40); White Blood Cell (WBC) Count 4.1 thou/uL (4.8-10.8)
[2019-08-06 05:53] LABS: Anion Gap 14 mmol/L (10-20); BUN (Urea Nitrogen) 17 mg/dL (9.8-20.1); Calc. Creatinine Clearance 84 mL/min (70-130); Calcium 8.5 mg/dL (7.8-10.44); Carbon Dioxide 27 mmol/L (23-31); Chloride 91 mmol/L (98-107); Estimated GFR-MDRD Greater than 90; Glucose 122 mg/dL (80-115); Potassium 3.6 mmol/L (3.5-5.1); Sodium 128 mmol/L (136-145)
[2019-08-06 06:13] VITALS: BMI 16.9
[2019-08-06] MEDS: Saccharomyces boulardii 250 MG CAP PO SCH (08:32)
[2019-08-06] MEDS: Amlodipine 5 MG TAB PO SCH (08:34)
[2019-08-06] MEDS: predniSONE 20 MG TAB PO SCH ×2 (08:34→16:36)
[2019-08-06] MEDS: Apixaban 5 MG TAB PO SCH ×2 (08:34→22:32)
--- NOTE | 2019-08-06 13:45 | PRG ---
DATE OF SERVICE: 08/06/2019 SUBJECTIVE: Ms. Guzman is noticing more abdominal cramping and nausea. Her diarrhea has really slowed down. She apparently had two episodes of diarrhea last night and just one so far this morning, small quantity with occasional formed stool in it. OBJECTIVE: VITAL SIGNS: She is afebrile. Heart rate is 100, respirations 16, oxygen saturation 96% on room air, and blood pressure 156/89. CARDIOVASCULAR SYSTEM: S1-S2 plus. RESPIRATORY SYSTEM: Normal vesicular breath sounds. ABDOMEN: Soft and nontender. Bowel sounds heard in all quadrants. EXTREMITIES: Without cyanosis or clubbing. Significant muscle atrophy. CENTRAL NERVOUS SYSTEM: Awake and responsive. Generalized weakness. LABORATORY DATA: Laboratory values from this morning showed a sodium of 128, potassium 3.6, and BUN and creatinine are 17 and 0.54. White count is 4.1 and H and H are 11.4 and 35.5. Improving LFTs with an AST is down to 38 and ALT is down to 154. IMPRESSION: 1. Metastatic lung cancer. 2. Autoimmune colitis. 3. Improving transaminitis. 4. Hyponatremia. 5. Anemia of chronic disease. 6. Improving protein calorie malnutrition. PLAN: 1. Add Bentyl 10 mg p.o. q.i.d. routine for the abdominal cramping. 2. Add Zofran 4 mg ODT p.r.n. for nausea. 3. Continue to encourage p.o. intake. 4. Schedule appointment with Dr. Menon for followup on autoimmune colitis. 5. Discussed with nursing. All questions answered. Job ID: [id number]
[2019-08-06] MEDS: Ondansetron ODT 4 MG TAB PO PRN (13:49)
--- NOTE | 2019-08-06 13:51 | PRG ---
DATE OF SERVICE: 08/03/2019 SUBJECTIVE: Ms. Guzman is doing the same, denies any complaints. Her appetite is good. She is eating well. Diarrhea is fluctuating. Abdominal cramp is doing better with Levsin. No family at bedside. OBJECTIVE: VITAL SIGNS: She is afebrile. Heart rate is 107, respirations 18, oxygen saturation 97% on room air, and blood pressure 127/84. CARDIOVASCULAR SYSTEM: S1 and S2 plus. RESPIRATORY SYSTEM: Normal vesicular breath sounds. ABDOMEN: Soft and nontender. Bowel sounds heard in all quadrants. EXTREMITIES: Without cyanosis or clubbing. CENTRAL NERVOUS SYSTEM: Generalized weakness. IMPRESSION: 1. Autoimmune colitis, improving. 2. Metastatic lung cancer. 3. Hypertension. 4. Dyslipidemia. 5. Paroxysmal atrial fibrillation. 6. Hyponatremia. PLAN: 1. Continue current medications. 2. Nutritional support. 3. DVT prophylaxis - the patient is on Eliquis. 4. Decubitus precautions. 5. Stress ulcer prophylaxis. 6. Monitor diarrhea. 7. Physical therapy. 8. Routine laboratory values. Job ID: [id number]
[2019-08-06] MEDS: Dicyclomine 20 MG TAB PO SCH ×2 (16:34→22:33)
[2019-08-06] MEDS: Famotidine 20 MG TAB PO SCH (22:32)
[2019-08-06] MEDS: Mirtazapine 15 MG Soltab PO SCH (22:33)
[2019-08-07] MEDS: predniSONE 20 MG TAB PO SCH ×2 (08:40→17:57)
[2019-08-07] MEDS: Apixaban 5 MG TAB PO SCH ×2 (08:40→22:13)
[2019-08-07] MEDS: Dicyclomine 20 MG TAB PO SCH ×4 (08:41→22:13)
[2019-08-07] MEDS: Amlodipine 5 MG TAB PO SCH (08:42)
[2019-08-07] MEDS: Saccharomyces boulardii 250 MG CAP PO SCH (08:45)
[2019-08-07] MEDS: HYDROcodone/Acetaminophen 10/325 mg Tablet PO PRN ×2 (09:16→22:13)
--- NOTE | 2019-08-07 13:42 | PRG ---
DATE OF SERVICE: 08/07/2019 SUBJECTIVE: Ms. Guzman is doing much better today. She feels like the Bentyl is helping. She is tolerating her diet. She has had no diarrhea for 24 hours. Denies any further nausea or vomiting. Participated with therapy. OBJECTIVE: VITAL SIGNS: She is afebrile, heart rate is 103, respirations 18, oxygen saturation 97% on room air, blood pressure 156/86. CARDIOVASCULAR SYSTEM: S1 and S2 plus. RESPIRATORY SYSTEM: Normal vesicular breath sounds. ABDOMEN: Soft, nontender. Bowel sounds heard in all quadrants. EXTREMITIES: Without cyanosis or clubbing. CENTRAL NERVOUS SYSTEM: Awake and responsive. Generalized weakness. IMPRESSION: 1. Autoimmune colitis, improving. 2. Anemia of chronic disease. 3. Metastatic lung cancer. 4. Hyponatremia. 5. Improving protein-calorie malnutrition. 6. Paroxysmal atrial fibrillation. 7. Hypertension. 8. Dyslipidemia. PLAN: 1. Continue current medications. 2. Nutritional support. 3. Start cutting down on her narcotics from tomorrow. 4. Continue therapy. 5. Recheck CBC and BMP. 6. Monitor for any recurrence or worsening of diarrhea. 7. Appointment with GI. Nursing to schedule it. I had sent them a note yesterday, it has not been done, reminded them today. 8. Monitor blood pressure. 9. Monitor heart rate and rhythm. Job ID: [id number]
[2019-08-07] MEDS: Famotidine 20 MG TAB PO SCH (22:13)
[2019-08-07] MEDS: Baclofen 10 MG TAB PO PRN (22:13)
[2019-08-07] MEDS: Ondansetron ODT 4 MG TAB PO PRN (22:14)
[2019-08-07] MEDS: Hyoscyamine Sulfate SL 0.125 mg Tablet SL PRN (22:14)
[2019-08-07] MEDS: Mirtazapine 15 MG Soltab PO SCH (22:14)
[2019-08-08] MEDS: predniSONE 20 MG TAB PO SCH ×2 (07:55→17:18)
[2019-08-08] MEDS: Dicyclomine 20 MG TAB PO SCH (07:55)
[2019-08-08] MEDS: Saccharomyces boulardii 250 MG CAP PO SCH (07:56)
[2019-08-08] MEDS: Apixaban 5 MG TAB PO SCH ×2 (07:57→21:06)
[2019-08-08] MEDS: Amlodipine 5 MG TAB PO SCH (07:57)
[2019-08-08] MEDS: HYDROcodone/Acetaminophen 10/325 mg Tablet PO PRN ×2 (11:07→23:13)
[2019-08-08] MEDS: Baclofen 10 MG TAB PO PRN (11:07)
[2019-08-08] MEDS ORDERED: Baclofen 10 MG TAB PO PRN (12:29)
--- NOTE | 2019-08-08 13:35 | PRG ---
DATE OF SERVICE: 08/08/2019 SUBJECTIVE: Ms. Guzman saw Dr. Menon this morning. She apparently was having some suprapubic pain. She was unable to void, and so she had a straight cath done, which drained 650 mL. This is the first time she has been noted to have urinary retention. I have ordered a bladder scan q.6 hours, and to do in and out catheterization if postvoid residual is more than 400 mL. She only had one bowel movement this morning. She also looks much weaker and more somnolent today, and I reviewed her medications and will reduce her baclofen dose to 5 mg instead of 10. We will reduce her Bentyl to t.i.d. instead of q.i.d. and also discontinue her Levsin. I am going to hold off on empiric antibiotics given her risk for C diff. Encouraged her to drink plenty of fluids and also eat well. I also noted that she had refused therapy on Tuesday and Tuesday, so she really has not had any therapy since last Tuesday. Her [id number] is in the room and I had a long discussion with her and explained the importance of therapy to maintain her conditioning and our eventual plan of getting her back home. OBJECTIVE: VITAL SIGNS: She is afebrile. Heart rate 102, respirations 20, oxygen saturation 97% on room air, blood pressure 152/90. CARDIOVASCULAR: S1 and S2 plus. RESPIRATORY: Normal vesicular breath sounds. ABDOMEN: Soft, nontender. Bowel sounds heard in all quadrants. EXTREMITIES: Without cyanosis or clubbing. Significant muscle atrophy. CENTRAL NERVOUS SYSTEM: Generalized weakness. IMPRESSION: 1. Metastatic lung cancer. 2. Resolving autoimmune colitis. 3. Urinary retention, new. 4. Atrial fibrillation, paroxysmal. 5. Hypertension. 6. Dyslipidemia. 7. Anemia of chronic disease. 8. Hyponatremia. PLAN: 1. Increase Remeron to 30 mg to see if it helps with both depression and continue to improve her appetite. 2. Discontinue Levsin. 3. Reduce Bentyl to t.i.d. and baclofen dose to 5 mg to see if they may be contributing to her somnolence. 4. Encourage p.o. intake. 5. Bladder scan q.6 hours, and in and out catheterization if postvoid residual greater than 400 mL. 6. Await urinalysis and urine culture. 7. Recheck CBC and CMP in the morning. 8. Reinforce complaints with therapy. 9. Discussed with the patient, nursing, and [id number] in detail and all questions were answered. Job ID: [id number]
[2019-08-08 13:37] LABS: Bilirubin Negative (Negative); Blood, Urine Negative (Negative); Clarity Clear (Clear); Glucose, Urine (Dipstick) 100 mg/dL (Negative); Leukocyte Negative (Negative); Nitrite Negative (Negative); Urobilinogen 0.2 mg/dL (Less than 2)
[2019-08-08 13:42] LABS: Protein, Urine (Dipstick) 30 mg/dL (Neg-Trace)
[2019-08-08 13:43] LABS: Urine Culture Reflex No No
[2019-08-08 14:08] LABS: Bacteria/HPF Rare-Few HPF (None Seen); RBC/HPF None Seen HPF (0-3); Squamous Epithelial 0-3 HPF (0-3); WBC/HPF None Seen HPF (0-3)
[2019-08-08] MEDS ORDERED: Dicyclomine 20 MG TAB PO SCH (15:00)
[2019-08-08] MEDS ORDERED: Dicyclomine 10 MG CAP PO SCH (21:00)
[2019-08-08] MEDS: Famotidine 20 MG TAB PO SCH (21:06)
[2019-08-08] MEDS: Mirtazapine 15 MG Soltab PO SCH (21:06)
[2019-08-08] MEDS: Dicyclomine 10 MG CAP PO PRN (23:13)
[2019-08-09 05:47] LABS: ALT (SGPT) 130 U/L (8-55); AST (SGOT) 48 U/L (5-34); Albumin 3.1 g/dL (3.4-4.8); Alkaline Phosphatase 204 U/L (40-110); Anion Gap 14 mmol/L (10-20); BUN (Urea Nitrogen) 13 mg/dL (9.8-20.1); Bilirubin, Total 1.2 mg/dL (0.2-1.2); Calc. Creatinine Clearance 88 mL/min (70-130); Calcium 8.2 mg/dL (7.8-10.44); Carbon Dioxide 30 mmol/L (23-31); Chloride 86 mmol/L (98-107); Estimated GFR-MDRD Greater than 90; Globulin 2.1 g/dL (2.4-3.5); Glucose 107 mg/dL (80-115); Potassium 3.2 mmol/L (3.5-5.1); Protein, Total 5.2 g/dL (6.0-8.3); Sodium 127 mmol/L (136-145)
[2019-08-09 05:53] LABS: Band 4 % (5-11); Hemoglobin 11.3 g/dL (12.0-16.0); Lymphocytes 10 % (21-51); MDiff Complete? YES; Mean Corpuscular HGB CONC 33.7 g/dL (32.0-36.0); Mean Corpuscular Hemoglobin 30.6 pg (27.0-31.0); Mean Corpuscular Volume 90.8 fL (78.0-98.0); Mean Platelet Volume 6.1 fL (7.4-10.4); Monocytes 2 % (0-10); Neutrophil 84 % (42-75); Platelet Count 139 thou/uL (130-400); RBC Distribution Width 16.1 % (11.5-14.5); Red Blood Cell (RBC) Count 3.68 mill/uL (4.20-5.40); White Blood Cell (WBC) Count 4.1 thou/uL (4.8-10.8)
[2019-08-09] MEDS ORDERED: predniSONE 10 MG TAB PO SCH (08:00)
[2019-08-09] MEDS: Apixaban 5 MG TAB PO SCH ×2 (08:51→21:03)
[2019-08-09] MEDS: Saccharomyces boulardii 250 MG CAP PO SCH (08:51)
[2019-08-09] MEDS: Amlodipine 5 MG TAB PO SCH (08:51)
[2019-08-09] MEDS: predniSONE 20 MG TAB PO SCH (09:30)
[2019-08-09] MEDS: predniSONE 5 MG TAB PO SCH ×2 (10:00→17:28)
[2019-08-09] MEDS: HYDROcodone/Acetaminophen 10/325 mg Tablet PO PRN ×2 (10:43→21:03)
[2019-08-09] MEDS: Dicyclomine 10 MG CAP PO PRN (10:47)
[2019-08-09] MEDS ORDERED: Potassium Chloride 20 MEQ TAB PO SCH (13:30)
--- NOTE | 2019-08-09 13:54 | PRG ---
DATE OF SERVICE: 08/09/2019 SUBJECTIVE: Ms. Guzman is much more awake and responsive this morning. She apparently ate all of her breakfast. She again refused therapy because she states she feels weak and explained to her that not doing therapy makes her more weaker and it is not a good cycle. I advised her that she needs to work with therapy this afternoon and I have also asked nursing to inform therapy to come by and work with her. I also told her that there is suspicion for steroid-induced myopathy, and so I have cut down on her prednisone dosage. She only had one bowel movement this morning, which was semi solid or not very loose per nursing. She is continuing to have urinary retention requiring in and out catheterizations, so I advised her that to not take the Bentyl unless it is absolutely necessary. In fact, I am going to discontinue the Bentyl and just have her on the Levsin p.r.n. and see how she does since her colitis seems to have pretty much resolved. OBJECTIVE: VITAL SIGNS: She is afebrile. Heart rate 99, respirations 20, oxygen saturation 95% on room air, blood pressure 132/83. CARDIOVASCULAR: S1 and S2 plus. RESPIRATORY: Normal vesicular breath sounds. ABDOMEN: Soft, nontender. Bowel sounds heard in all quadrants. EXTREMITIES: Without cyanosis or clubbing. CENTRAL NERVOUS SYSTEM: Awake and responsive. Generalized weakness. LABORATORY VALUES: White count is 4.1, hemoglobin and hematocrit are 11.3 and 33.4. Sodium is 127, potassium is low at 3.2, BUN and creatinine are 13 and 0.49. AST and ALT are slightly elevated at 48 and 130, and I am not sure it is cholestasis from the steroids. IMPRESSION: 1. 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 2. Metastatic lung cancer. 3. Resolving confusion. 4. Improving autoimmune colitis. 5. Paroxysmal atrial fibrillation. 6. Hypertension. 7. Dyslipidemia. 8. Anemia of chronic disease. 9. Hypokalemia. 10. Hyponatremia. PLAN: 1. Make sure she is on a regular diet. 2. Replace potassium. 3. Encourage participation with therapy. 4. Discontinue Bentyl and add Levsin p.r.n. 5. Monitor laboratory values closely. 6. Continue in and out catheterization. 7. I had a long discussion with her son, Kendall yesterday as well as her [id number]. I also spoke with Dr. Hood last night and all are agreeable with the plan of care. Job ID: [id number]
[2019-08-09] MEDS: Mirtazapine 15 MG Soltab PO SCH (21:03)
[2019-08-09] MEDS: Famotidine 20 MG TAB PO SCH (21:03)
[2019-08-10] MEDS: predniSONE 5 MG TAB PO SCH ×2 (08:09→17:55)
[2019-08-10] MEDS: Amlodipine 5 MG TAB PO SCH (08:10)
[2019-08-10] MEDS: Saccharomyces boulardii 250 MG CAP PO SCH (08:12)
[2019-08-10] MEDS: Apixaban 5 MG TAB PO SCH ×2 (08:12→20:56)
[2019-08-10] MEDS: Hyoscyamine Sulfate SL 0.125 mg Tablet PO PRN (14:07)
[2019-08-10] MEDS: HYDROcodone/Acetaminophen 10/325 mg Tablet PO PRN (15:10)
--- NOTE | 2019-08-10 18:21 | PRG ---
DATE OF SERVICE: 08/10/2019 SUBJECTIVE: Ms. Guzman is awake and ate most of her breakfast. She is up in bed. She apparently when they helped her to the bedside commode was able to void 300 mL. I advised nursing to make sure they do not try the bedpan and get her to the bedside commode. Also encouraged her to work with therapy and I advised her that I have cut down on the prednisone and will keep a close eye on her GI symptoms. OBJECTIVE: VITAL SIGNS: She is afebrile. Heart rate 97, respirations 20, oxygen saturation 93% on room air, blood pressure 130/80. CARDIOVASCULAR: S1 and S2 plus. RESPIRATORY: Normal vesicular breath sounds. ABDOMEN: Soft, nontender. Bowel sounds heard in all quadrants. EXTREMITIES: Without cyanosis or clubbing. CENTRAL NERVOUS SYSTEM: Awake and responsive. Generalized weakness. IMPRESSION: 1. Metastatic lung cancer. 2. Autoimmune colitis, much improved. 3. Significant deterioration in strength, likely steroid induced myopathy. 4. Worsening liver function tests, possibly cholestasis from the steroids. 5. Hypertension. 6. Dyslipidemia. 7. Paroxysmal atrial fibrillation. PLAN: 1. Continue current medications. 2. Regular diet. 3. Physical therapy. 4. Monitor any decomposition of her colitis. 5. Monitor liver function test and order liver ultrasound. 6. Continue to encourage p.o. intake. 7. Discontinue baclofen. 8. Discussed with the patient and nursing in detail and all questions were answered. Job ID: [id number]
[2019-08-10] MEDS: Mirtazapine 15 MG Soltab PO SCH (20:56)
[2019-08-10] MEDS: Famotidine 20 MG TAB PO SCH (20:56)
[2019-08-11] MEDS: Amlodipine 5 MG TAB PO SCH (07:55)
[2019-08-11] MEDS: Hyoscyamine Sulfate SL 0.125 mg Tablet PO PRN (07:55)
[2019-08-11] MEDS: HYDROcodone/Acetaminophen 10/325 mg Tablet PO PRN (07:56)
[2019-08-11] MEDS: predniSONE 5 MG TAB PO SCH (09:12)
[2019-08-11] MEDS: Saccharomyces boulardii 250 MG CAP PO SCH (09:15)
[2019-08-11] MEDS: Apixaban 5 MG TAB PO SCH (09:16)
[2019-08-11] MEDS ORDERED: Sodium Chloride 0.9% 500 ML IVPB SCH (11:15)
--- NOTE | 2019-08-11 11:31 | CT ---
CT head noncontrast HISTORY: Altered mental status. COMPARISON: 07/18/2019. FINDINGS: There is no evidence of acute intracranial hemorrhage or infarct. Ventricular system is now mildly distended, significantly different than on the prior exam. Ill-defined decreased density within the periventricular white matter has the appearance of transependymal flow of CSF. Fourth vent ricle slightly more distended than on the previous exams. No focal mass effect. Visualized paranasal sinuses remain well-aerated. 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 Cause is not aura dent. There is rapid of a developmental is unusual.
[2019-08-11 11:49] LABS: Anion Gap 16 mmol/L (10-20); BUN (Urea Nitrogen) 22 mg/dL (9.8-20.1); Calc. Creatinine Clearance 74 mL/min (70-130); Calcium 8.3 mg/dL (7.8-10.44); Carbon Dioxide 29 mmol/L (23-31); Chloride 84 mmol/L (98-107); Estimated GFR-MDRD Greater than 90; Glucose 105 mg/dL (80-115); Potassium 3.7 mmol/L (3.5-5.1); Sodium 125 mmol/L (136-145)
[2019-08-11 12:21] LABS: #Lymphocytes 0.9 thou/uL (1.20-3.40); #Monocytes 0.4 thou/uL (0.11-0.59); #Neutrophils 4.4 thou/uL (1.40-6.50); %Basophils 0.7 % (0.0-1.0); %Eosinophils 0.1 % (0.0-10.0); %Monocytes 6.7 % (0.0-10.0); %Neutrophils 77.6 % (42.0-75.0); Hemoglobin 11.9 g/dL (12.0-16.0); Mean Corpuscular Hemoglobin 30.3 pg (27.0-31.0); Mean Corpuscular Volume 91.9 fL (78.0-98.0); Mean Platelet Volume 5.3 fL (7.4-10.4); Platelet Count 142 thou/uL (130-400); RBC Distribution Width 16.2 % (11.5-14.5); Red Blood Cell (RBC) Count 3.93 mill/uL (4.20-5.40); White Blood Cell (WBC) Count 5.7 thou/uL (4.8-10.8)
[2019-08-11 12:44] VITALS: BP 122/75; TEMP 98.6
--- NOTE | 2019-08-12 00:29 | DIS ---
DATE OF ADMISSION: 07/27/2019 DATE OF DISCHARGE: 08/11/[address] Roderick Monk. FINAL DIAGNOSES: 1. Acute onset of hydrocephalus. 2. Metastatic lung cancer. 3. Autoimmune colitis, much improved. 4. Hypertension. 5. Paroxysmal atrial fibrillation. HOSPITAL COURSE: The patient is an unfortunate 63-year-old white female with a history of metastatic lung cancer, who has developed autoimmune colitis secondary to chemotherapy that she had taken with subsequent recurrent dehydration and weakness. She was admitted to [facility] for PT and OT and for monitoring of her status. She did well originally and was working with therapy, but then began to have refusal of therapy with increased weakness with no signs of dehydration as her laboratory showed white count that was initially elevated at 17,700, normalized to 5,700 with decreasing her steroids. Hemoglobin stabilized at 11.9, and platelet count stable at 142. Sodium ranging from 127 to 130 with potassium of 3.2 to 3.8, BUN ranging from 13 to 19 with creatinine of 0.49. However, liver function studies did rise slightly for the alkaline phosphatase from 150 to 204 and she appeared to be more altered, confused and weakened on the date of transfer and she subsequently had a CT scan done to evaluate for possible metastasis, which did not show any metastasis, but it did show reading by the radiologist of rapid onset communicating hydrocephalus with no etiology present. Therefore, it was felt this may be causing some of her problems with weakness and increasing lethargy and therefore, she was transferred to [facility] for neurosurgical and neurological evaluation. She was transferred to the hospitalist under the care of Dr. Chris Alfaro. On discharge, her vital signs were stable with a blood pressure of 122/75, temperature 98, pulse 114, respirations 16, O2 sats 95% on room air. Job ID: [id number]
== END 2019-08-11 13:30 | disposition short-term general hospital (02) | DRG 948 ==
LOC: NAV ACUTE 10:03
PROVIDERS: ADMIT Internal Medicine; ATTEND Internal Medicine
DX: R53.1 Weakness (principal); I48.92 Unspecified atrial flutter; C34.90 Malignant neoplasm of unspecified part of unspecified bronchus or lung; C79.51 Secondary malignant neoplasm of bone; K52.1 Toxic gastroenteritis and colitis; A04.72 Enterocolitis due to Clostridium difficile, not specified as recurrent; E87.1 Hypo-osmolality and hyponatremia; E44.1 Mild protein-calorie malnutrition; G91.9 Hydrocephalus, unspecified; G72.0 Drug-induced myopathy; Z68.1 Body mass index [BMI] 19.9 or less, adult; I10 Essential (primary) hypertension; E78.5 Hyperlipidemia, unspecified; R53.81 Other malaise; E86.0 Dehydration; E87.6 Hypokalemia; D72.829 Elevated white blood cell count, unspecified; R53.83 Other fatigue; D64.9 Anemia, unspecified; T38.0X5A Adverse effect of glucocorticoids and synthetic analogues, initial encounter; Z88.8 Allergy status to other drugs, medicaments and biological substances; T45.1X5D Adverse effect of antineoplastic and immunosuppressive drugs, subsequent encounter; I48.0 Paroxysmal atrial fibrillation
CPT/HCPCS: 36415; 70450; 80048; 80053; 83735; 85025; J1642; J7050; J7512; Q0162; Q0169